=== PATIENT | male | born 1980 | race Caucasian/White ===

== ENCOUNTER 2018-08-27 10:56 | Emergency (ER) | payer OTHER ==
[~2018-08-27] VITALS: Ht 167.6 cm; Wt 126.4 kg
[2018-08-27] MEDS ORDERED: KETOROLAC 30 MG/ML VIAL (J1885) As Ordered ONE (11:17)
[2018-08-27] MEDS ORDERED: KETOROLAC 30 MG/ML VIAL (J1885) IV ONE (11:30)
[2018-08-27] MEDS ORDERED: MORPHINE 4 MG/ML 1ML VIAL/SYRINGE (J2270) IV ONE (11:45)
--- NOTE | 2018-08-27 13:13 | REP ---
Right knee: Two views. History: Trauma. Findings: AP and lateral views of the right knee demonstrate normal bones, joints and soft tissues. No fracture or subluxation is seen. Impression: No fracture seen. Electronically Signed by Lisandro Peña MD 08/27/2018 01:05 P
--- NOTE | 2018-08-27 13:14 | REP ---
Right femur: Four views. History: Trauma. Findings: Four views right femur demonstrate normal bones, joints, and soft tissues. No fracture or subluxation is seen. Impression: Negative right femur radiographs. Electronically Signed by Lisandro Peña MD 08/27/2018 01:06 P
--- NOTE | 2018-08-27 13:14 | REP ---
Right tib-fib series: Four views. History: Trauma. Findings: Four views of the right tibia and fibula demonstrate no evidence of fracture or subluxation. There is mild pretibial soft tissue swelling. Impression: No fracture seen. Mild pretibial soft tissue swelling. Electronically Signed by Lisandro Peña MD 08/27/2018 01:07 P
--- NOTE | 2018-08-27 13:15 | REP ---
Right wrist : Two views. History: Trauma. Findings: AP and lateral views of the right wrist show overall normal mineralization. Bones, joints and soft tissues are unremarkable. Impression: Negative radiographs of the right wrist. Electronically Signed by Lisandro Peña MD 08/27/2018 01:08 P
--- NOTE | 2018-08-27 13:16 | REP ---
Chest x-ray: Single AP view. History: Trauma. Findings: The lungs are well inflated and clear. Heart is not enlarged. Pulmonary vasculature is not increased. No significant bony abnormality. Impression: Negative single view chest x-ray. Electronically Signed by Lisandro Peña MD 08/27/2018 01:08 P
--- NOTE | 2018-08-27 13:18 | REP ---
Right elbow: Two views. Limited study. History: Trauma. Findings: There is an intra-articular displaced fracture of the proximal end of the olecranon process. On lateral radiographs of the fracture is rotated and displaced proximally consistent with a triceps tendon mechanism disruption. The radial head is not well seen and I cannot exclude radial head fracture. No other fracture is appreciated. Impression: Displaced olecranon process fracture, intra-articular. Triceps tendon mechanism a avulsion injury. Proximal radial head not well seen. Radial head fracture cannot be excluded. Electronically Signed by Lisandro Peña MD 08/27/2018 01:10 P
--- NOTE | 2018-08-27 13:21 | REP ---
Right forearm: Two views. History: Trauma. Findings: AP and lateral views of the right forearm are presented. There is an intra-articular fracture of the proximal radial head with some impaction. A olecranon process fracture is seen. Neither of these fractures are optimally displayed due to positioning and projection issues. Impression: Proximal radial head fracture with some impaction. Proximal ulnar/olecranon fracture not well displayed. Electronically Signed by Lisandro Peña MD 08/27/2018 01:13 P
--- NOTE | 2018-08-27 14:11 | REP ---
CT study of the right elbow without contrast: History: Trauma. Technique: Helical scanning is acquired. 3 mm axial and coronal and sagittal MPR images are generated. 3-D surface rendered CT series is generated and viewed rotationally. CT findings: Study confirms the presence of a impacted intra-articular fracture of the proximal radial head. Proximal radius is well aligned. There is a coronoid process chip fracture as well which was not apparent radiographically. There is a complex fracture of the proximal ulna with a linear component along the radial side of the proximal ulna nondisplaced. There is also an avulsion fracture from the olecranon process. This is rotated approximately 90 degrees and somewhat retracted as seen radiographically. There is some comminution here. No distal humeral fracture is seen. There is associated soft-tissue swelling. Impression: Impacted comminuted fracture of the proximal radial head. Linear fracture along the lateral or radial surface of the proximal ulna. Coronoid process chip fracture. A avulsed olecranon process fracture with distraction. Electronically Signed by Lisandro Peña MD 08/27/2018 02:32 P
[2018-08-27] MEDS ORDERED: PERCOCET 5MG/325MG TAB PO ONE (14:30)
[2018-08-27] MEDS ORDERED: PERC5TAB12 PO (14:30)
[2018-08-27 14:57] VITALS: BP 120/75
== END 2018-08-27 14:59 | disposition home or self-care (01) ==
LOC: M ED 10:56
DX: S52.021A Displaced fracture of olecranon process without intraarticular extension of right ulna, initial encounter for closed fracture (principal); S52.181A Other fracture of upper end of right radius, initial encounter for closed fracture; S52.091A Other fracture of upper end of right ulna, initial encounter for closed fracture; V86.55XA Driver of 3- or 4- wheeled all-terrain vehicle (ATV) injured in nontraffic accident, initial encounter; Y92.9 Unspecified place or not applicable; Y93.9 Activity, unspecified; Y99.9 Unspecified external cause status; F12.10 Cannabis abuse, uncomplicated
CPT/HCPCS: 71045; 73080; 73090; 73110; 73200; 73552; 73564; 73590; 96374; 96375; 99284; J1885; J2270

== ENCOUNTER → 2018-08-30 | Outpatient (CLI) | payer OTHER ==
[~2018-08-30] MED LIST: PERC5TAB12 PO
--- NOTE | 2018-08-30 16:59 | REP ---
CT of the right knee: Comparison is the plain film study dated 08/27/2018. There is a minimally displaced fracture in the lateral tibial plateau posteriorly and a medium of a displaced fracture in the adjacent fibular head. There is no dislocation. There is a small hemarthrosis. Mineralization is otherwise normal. There are no calcifications or foreign bodies. The joint spaces are otherwise unremarkable. Impression: Minimally displaced fractures as described. Electronically Signed by Mekhi Luke MD 08/30/2018 04:51 P
== END ==
LOC: M RAD 15:55
PROVIDERS: ATTEND Orthopaedic Surgery Sports Medicine
DX: S82.121A Displaced fracture of lateral condyle of right tibia, initial encounter for closed fracture (principal); X58.XXXA Exposure to other specified factors, initial encounter; Y92.89 Other specified places as the place of occurrence of the external cause

== ENCOUNTER 2018-09-06 16:49 | Observation (INO) | payer OTHER ==
[~2018-09-06] VITALS: Ht 167.6 cm; Wt 190.0 kg
[2018-09-06 17:25] VITALS: BP 127/74
[2018-09-06] MEDS ORDERED: PERC5TAB12 PO (18:56)
[2018-09-06] MEDS ORDERED: ONDANSETRON 4MG/2ML VIAL (J2405) IV PRN (19:15)
[2018-09-06] MEDS ORDERED: ONDANSETRON 4 MG TAB (S0181) PO PRN (19:15)
[2018-09-06] MEDS ORDERED: PERCOCET 5MG/325MG TAB PO PRN (19:15)
[2018-09-06] MEDS ORDERED: ACETAMINOPHEN TAB 650MG DOSE (2X325MG) PO PRN (19:15)
[2018-09-06] MEDS ORDERED: MORPHINE 2 MG/ML 1ML SYRINGE (J2270) IV PRN (19:15)
[2018-09-06 19:24] VITALS: O2SAT 97
[2018-09-06] MEDS: PERCOCET 5MG/325MG TAB PO PRN (19:57)
[2018-09-06 22:00] VITALS: BP 116/71
[2018-09-07] MEDS: PERCOCET 5MG/325MG TAB PO PRN ×3 (00:33→10:54)
[2018-09-07 02:00] VITALS: BP 120/72
[2018-09-07 06:00] VITALS: BP 127/74
--- NOTE | 2018-09-07 07:25 | IPN ---
DATE: 09/07/2018 CHIEF COMPLAINT: Postoperative day #1 right olecranon open reduction internal fixation. Direct admit for pain control and low oxygen saturation HISTORY OF PRESENT ILLNESS: This is a 37-year-old man here for open reduction internal fixation of his right olecranon fracture with heavy non-absorbable sutures and then placed him into an above elbow three-sided splint with the arm in about 70 degrees of flexion yesterday at the surgical center at [facility] ([facility] [place]). This was planned for outpatient surgery, however, before and after surgery is requiring more pain medications and was having decreased oxygen saturations down to the mid 80s and low 80s while falling asleep. It was normal when he was awake in the high 90s. He is not having chest pain, shortness of breath or any other concerning symptoms. We had admitted him overnight for monitoring. He did well overnight. His pain appeared well controlled. Per his nurse, he only had 1 decreased oxygen saturation to the mid 70s overnight, but otherwise was in the normal range. No concerns from the patient. PHYSICAL EXAMINATION: Well-appearing 37-year-old man in no acute distress. He looks comfortable. He is lying supine in bed. Splint is in situ. He is alert and oriented times three. Mood and affect pleasant and positive. He is a little bit anxious. Vital signs this morning, temperature 97.3, blood pressure 120/72, pulse rate 83, respiratory rate 19 and oxygen saturation anywhere from 95% to 100%. Inspection of the right upper extremity reveals the splint to be in situ. There is no skin irritation. He is able to raise. Motor intact to median radial and ulnar nerves, plus PN/AN. Normal sensation to median and radial ulnar nerves as well. Hands warm and well perfused with strong radial pulse. ASSESSMENT/PLAN: This 37-year-old man can be discharged home when he is comfortable. He is toe touch weightbearing on the right lower extremity due to a small tibial plateau rim fracture. He has a brace for this already. He will be in a sling which he already has for the right upper extremity. I have suggested an outpatient sleep study or other forms of checking for obstructive sleep apnea to him on an outpatient basis. I would like to see the patient in two weeks time for followup and there should be a prescription phoned into his home pharmacy already by the [facility] office.
== END 2018-09-07 12:15 | disposition home or self-care (01) ==
LOC: M MS5PR 17:25
PROVIDERS: ADMIT Orthopaedic Surgery Sports Medicine; ATTEND Orthopaedic Surgery Sports Medicine
DX: G89.18 Other acute postprocedural pain (principal); R06.89 Other abnormalities of breathing; G47.30 Sleep apnea, unspecified

== ENCOUNTER → 2019-03-11 | Outpatient (CLI) | payer OTHER ==
--- NOTE | 2019-03-12 08:05 | REP ---
MRI RIGHT KNEE: TECHNIQUE: Axial proton density fat saturation, sagittal proton density T2 STIR, water excitation, coronal proton density, proton density fat saturation. There is a vertical tear in the posterior horn of the lateral meniscus. There is also a small tear centrally of the body of the lateral meniscus. The medial meniscus is intact. The cruciate and collateral ligaments are intact. The anterior cruciate ligament is quite thin and may have been previously torn. The extensor mechanism is intact. There is very mild global chondromalacia. No focal osteochondral defect is seen. There is no bone marrow edema or occult fracture. Medial and lateral patellar retinacula are intact. There is a small joint effusion with a tiny amount of fluid extending into the medial popliteal fossa. IMPRESSION: Vertical tear posterior horn lateral meniscus. Small tear central body lateral meniscus. Medial meniscus intact. Cruciate and collateral ligaments intact. The anterior cruciate ligament is quite thin and may have been previously torn. Very mild global chondromalacia. Small joint effusion. Electronically Signed by Mekhi Pugh MD 03/12/2019 12:24 P
--- NOTE | 2019-03-12 08:22 | REP ---
MRI RIGHT SHOULDER: TECHNIQUE: Axial T2 fat sat, gradient echo, sagittal oblique T2 fat sat, coronal oblique T1, T2 fat sat. Supraspinatus tendon demonstrates high signal on T2-weighted images extending through the entire thickness of the anterior aspect of the tendon, consistent with a partial full thickness tear. Other rotator cuff tendons appear intact. There are mild hypertrophic degenerative changes of the acromioclavicular joint with mild fluid in the joint. Acromion is type 2. Biceps tendon is within the bicipital groove with mild surrounding fluid suggesting mild tenosynovitis. There is no Hill-Sachs deformity. There is mild ill-defined edema in the lateral and posterior deltoid suggesting either muscle strain or myositis. There is mild fraying of the biceps labral complex. There is no evidence of a labral tear. There is mild subchondral marrow edema in the superior humeral head. Tiny amount of fluid is seen in the subacromial-subdeltoid bursae. IMPRESSION: Partial full thickness tear anterior supraspinatus tendon. Mild hypertrophic degenerative changes acromioclavicular joint with a type 2 acromion. Mild fluid surrounding the biceps tendon suggests mild tenosynovitis. Mild scattered edema in the lateral and posterior deltoid muscle suggests strain or myositis. There is mild fraying of the biceps labral complex without evidence of a discrete labral tear. Mild subchondral marrow edema superior humeral head. Tiny amount of fluid in the subacromial-subdeltoid bursae. Electronically Signed by Mekhi Pugh MD 03/12/2019 12:24 P
== END ==
LOC: M RAD 13:52
PROVIDERS: ATTEND Orthopaedic Surgery Sports Medicine
DX: M65.811 Other synovitis and tenosynovitis, right shoulder (principal); M25.361 Other instability, right knee